=== PATIENT | male | born 1965 | race Caucasian/White ===

== ENCOUNTER 2020-04-20 18:17 | Emergency (ER) | payer BC ==
[2020-04-20] MEDS ORDERED: MORPHINE SULFATE INJ 10 MG/ML VIAL IV ONE (18:32)
[2020-04-20] MEDS ORDERED: ONDANSETRON INJ 4 MG/2 ML VIAL IV ONE (18:32)
[2020-04-20] MEDS ORDERED: SODIUM CHLORIDE 0.9% 1000ML 1,000 ML ONE (19:08)
--- NOTE | 2020-04-20 19:13 | ED.PDOC ---
History of Present Illness - General Chief Complaint: Abdominal Pain Stated Complaint: abdominal pain Time Seen by Provider: 04/20/20 18:19 - History of Present Illness Initial Comments: 54 yo male presents abdomen pain started at noon, had some yesterday but went away. pain abrupt, left lower abdomen. associated with n/v. denies dysuria or heamturia. no fever. no black or bloody bm. no prior abdominal surgeries. no recent travel, no new medications. Review of Systems - Review of Systems Constitutional: Denies: chills, fever EENTM: Denies: blurred vision, throat pain, mouth pain Respiratory: Denies: cough, short of breath Cardiology: Denies: chest pain, palpitations Gastrointestinal/Abdominal: States: abdominal pain, nausea, vomiting. Denies: diarrhea Genitourinary: Denies: dysuria, frequency, hematuria Musculoskeletal: Denies: back pain, muscle pain Skin: Denies: change in color, rash Neurological: Denies: headache, numbness, paresthesia, tingling, tremors, weakness Endocrine: Denies: unexplained weight gain, unexplained weight loss Hematologic/Lymphatic: Denies: blood clots, easy bleeding, easy bruising Past Medical History (General) - Patient Medical History Hx Seizures: No Hx Stroke: No Hx Dementia: No Hx Asthma: No Hx of COPD: No Hx Cardiac Disorders: No Hx Congestive Heart Failure: No Hx Pacemaker: No Hx Hypertension: Yes - Vaccination History Hx Influenza Vaccination: No - Social History Hx Tobacco Use: Yes Family Medical History - Family History Mother Family History: No Known Living Status: Still Living Physical Exam - Physical Exam General Appearance: Alert, No apparent distress, Well Developed, Well Groomed, Well Hydrated, Well Nourished Eyes, Ears, Nose, Throat Exam: PERRL/EOMI, normal ENT inspection, TMs normal Neck: non-tender, full range of motion, supple, normal inspection Respiratory: chest non-tender, lungs clear, normal breath sounds, no respiratory distress, no accessory muscle use Cardiovascular/Chest: normal peripheral pulses, regular rate, rhythm, no edema, no gallop, no JVD, no murmur Peripheral Pulses: 2+ Gastrointestinal/Abdominal: normal bowel sounds, soft, no organomegaly, no pulsatile mass, other - mild llq tenderness, no rebound or gaurding Rectal Exam: deferred Back Exam: normal inspection, no CVA tenderness, no vertebral tenderness Extremity: normal range of motion, non-tender, normal inspection, no pedal edema, no calf tenderness Neurologic: rn telemetry II-XII nml as tested, no motor/sensory deficits, alert, normal mood/affect, oriented x 3 Skin Exam: normal color, warm/dry Progress - Progress Progress: Partial ddx: diverticulitis, kidney/ureter stone, gastroenteritis, sbo, AAA. patient given 4 mg morphine for pain. NS bolus. zofran. EKG shows HR 69 nsr, normal ecg. Will get blood work and ct scan. CT scan: 1. Mild left hydronephrosis with a 2.0 mm stone in the mid left ureter. 2. Punctate left nephrolithiasis. 3. Colonic diverticulosis. 4. Fatty liver. 5. Enlarged prostate gland. Right hydrocele. 6. renal cyst 04/20/20 19:30 EKG STAT 04/20/20 19:48 BLOOD CULTURE Stat 04/20/20 21:06 Discharge Stat Laboratory Results WBC 10.5 K/mm3 (4.8-10.8) 04/20/20 18:35 RBC 5.34 M/mm3 (4.70-6.10) 04/20/20 18:35 Hgb 16.8 gm/dL (14.0-18.0) 04/20/20 18:35 Hct 47.6 % (42.0-52.0) 04/20/20 18:35 MCV 89.2 fl (80.0-94.0) 04/20/20 18:35 MCH 31.4 pg (27.0-31.0) H 04/20/20 18:35 MCHC 35.2 g/dL (33.0-37.0) 04/20/20 18:35 RDW 13.3 % (11.5-14.5) 04/20/20 18:35 Plt Count 255 K/mm3 (130-400) 04/20/20 18:35 MPV 9.3 fl (7.40-10.4) 04/20/20 18:35 Absolute Neuts (auto) 5.50 K/uL (1.8-6.8) 04/20/20 18:35 Absolute Lymphs (auto) 3.50 K/uL (1.0-3.4) H 04/20/20 18:35 Absolute Monos (auto) 1.20 K/uL (0.2-0.8) H 04/20/20 18:35 Absolute Eos (auto) 0.10 K/uL (0.0-0.4) 04/20/20 18:35 Absolute Basos (auto) 0.10 K/uL (0.0-0.1) 04/20/20 18:35 Neutrophils % 53.0 % (42.0-78.0) 04/20/20 18:35 Lymphocytes % 33.6 % (20.0-50.0) 04/20/20 18:35 Monocytes % 11.0 % (2.0-9.0) H 04/20/20 18:35 Eosinophils % 1.4 % (1.0-5.0) 04/20/20 18:35 Basophils % 1.0 % (0.0-2.0) 04/20/20 18:35 Sodium 139 mmol/L (135-145) 04/20/20 18:35 Potassium 3.6 mmol/L (3.6-5.0) 04/20/20 18:35 Chloride 100 mmol/L (101-111) L 04/20/20 18:35 Carbon Dioxide 27 mmol/L (21-31) 04/20/20 18:35 Anion Gap 15.6 (12-18) 04/20/20 18:35 BUN 14 mg/dL (7-18) 04/20/20 18:35 Creatinine 0.96 mg/dL (0.6-1.3) 04/20/20 18:35 BUN/Creatinine Ratio 14.6 (10-20) 04/20/20 18:35 Random Glucose 108 mg/dL (70-105) H 04/20/20 18:35 Serum Osmolality 278.5 mOsm/L (275-295) 04/20/20 18:35 Calcium 9.1 mg/dL (8.4-10.2) 04/20/20 18:35 Total Bilirubin 0.7 mg/dL (0.2-1.0) 04/20/20 18:35 AST 65 IU/L (10-42) H 04/20/20 18:35 ALT 138 IU/L (10-60) H 04/20/20 18:35 Alkaline Phosphatase 95 IU/L (42-121) 04/20/20 18:35 Serum Total Protein 8.0 gm/dL (6.4-8.2) 04/20/20 18:35 Albumin 4.5 g/dl (3.2-5.5) 04/20/20 18:35 Globulin 3.5 gm/dL (2.3-3.5) 04/20/20 18:35 Albumin/Globulin Ratio 1.3 (1.1-1.9) 04/20/20 18:35 Lipase 34 U/L (22-51) 04/20/20 18:35 Urine Color Yellow (Yellow) 04/20/20 20:30 Urine Appearance Cloudy (Clear) 04/20/20 20:30 Urine pH 5.0 (4.5-7.8) 04/20/20 20:30 Ur Specific [place] 1.010 (1.005-1.030) 04/20/20 20:30 Urine Protein Negative mg/dL 04/20/20 20:30 Urine Glucose (UA) Negative mg/dL (Negative) 04/20/20 20:30 Urine Ketones Negative mg/dL (NEGATIVE) 04/20/20 20:30 Urine Blood Large (Negative) H 04/20/20 20:30 Urine Nitrite Negative 04/20/20 20:30 Urine Bilirubin Negative (NEGATIVE) 04/20/20 20:30 Urine Urobilinogen 0.2 mg/dL (0.2-1.0) 04/20/20 20:30 Ur Leukocyte Esterase Negative (Negative) 04/20/20 20:30 Urine RBC 40-50 /hpf H 04/20/20 20:30 Urine WBC 1-3 /hpf 04/20/20 20:30 Ur Epithelial Cells 0 /hpf 04/20/20 20:30 Urine Bacteria 0 04/20/20 20:30 04/21/20 00:23 The data reviewed when caring for this patient included: nurse notes, prior records, etc. The history and assessments from nurses notes were reviewed and considered, and the patient's home medication list was also reviewed and considered. My assessment and the results of testing completed here in the ED were discussed with the patient/family. All questions were answered, and they express understanding of my assessment and the plan. They have been instructed to return if their symptoms worsen, and have been asked to follow up with their primary care physician to recheck today's presenting complaint. Recommend follow up with urology. Strict return precautions given. I have reviewed medication, benefits, alternatives and side effects. Patient decided to proceed with medication.Mona Guerra DO #[id number] 04/21/20 00:25 Departure - Departure Clinical Impression: Ureterolithiasis Time of Disposition: 19:58 Disposition: Discharge to Home or Self Care Departure Forms: ED Discharge - Pt. Copy, Patient Portal Self Enrollment Instructions: DI for Abdominal Pain-Adult, Kidney Stones in Adults, Kidney Stone Diet Referrals: LIZETH LOONEY [Primary Care Provider] - 1-2 Days Prescriptions: Tamsulosin HCl [Flomax] 0.4 mg PO DAILY #14 cap Ibuprofen 800 mg PO TID PRN #30 tab PRN Reason: Pain Ondansetron HCl [Zofran] 4 mg PO TID PRN #15 tab PRN Reason: Vomiting Home Medications: Ambulatory Orders Acetamin W/Cod #3 Tab [Tylenol #3 Tab] 1 ea PO Q4-6H PRN #20 tab 07/31/14 Azithromycin [Zithromax Z-Saji] 1 ea PO DAILY 07/31/14 Naproxen Sodium [Anaprox Ds] 550 mg PO BID #30 tab 07/31/14 Oseltamivir Capsule [Tamiflu] 75 mg PO BID 07/31/14 Ibuprofen 800 mg PO TID PRN #30 tab 04/20/20 Ondansetron HCl [Zofran] 4 mg PO TID PRN #15 tab 04/20/20 Tamsulosin HCl [Flomax] 0.4 mg PO DAILY #14 cap 04/20/20
--- NOTE | 2020-04-20 19:37 | CT ---
EXAM: CT Abdomen and Pelvis With Intravenous Contrast CLINICAL HISTORY: The patient is 54 years old and is Male; abdominal pain, llq TECHNIQUE: Axial computed tomography images of the abdomen and pelvis with intravenous contrast. Sagittal and coronal reformatted images were created and reviewed. This CT exam was performed using one or more of the following dose reduction techniques: automated exposure control, adjustment of the mA and/or kV according to patient size, and/or use of iterative reconstruction technique. COMPARISON: No relevant prior studies available. FINDINGS: Lung bases: Dependent changes in the lungs. ABDOMEN: Liver: Fatty liver. Gallbladder and bile ducts: Unremarkable. No calcified stones. No ductal dilation. Pancreas: No findings to suggest acute pancreatitis. No mass visualized. No ductal dilation. Spleen: Unremarkable. No splenomegaly. Adrenals: Unremarkable. No mass. Kidneys and ureters: Mild left hydronephrosis with a 2.0 mm stone in the mid left ureter. Punctate left nephrolithiasis. Left renal simple cyst, 4.9 cm. No follow-up imaging recommended. Right kidney is unremarkable. Stomach and bowel: Colonic diverticulosis. No bowel dilatation or obstruction. No bowel wall thickening. Stomach is unremarkable. PELVIS: Appendix: The visualized appendix is normal. No pericecal inflammation to suggest acute appendicitis. Bladder: Unremarkable. No mass. Reproductive: Enlarged prostate gland. Right hydrocele. ABDOMEN and PELVIS: Intraperitoneal space: Unremarkable. No free air. No significant fluid collection. Bones/joints: Degenerative changes in the hips. Partial ankylosis of the right SI joint. Degenerative changes in the visualized spine. No acute fracture identified. Mild scoliosis. No dislocation. Soft tissues: Unremarkable. Vasculature: Unremarkable. No abdominal aortic aneurysm. Lymph nodes: No pathologically enlarged lymph nodes. IMPRESSION: 1. Mild left hydronephrosis with a 2.0 mm stone in the mid left ureter. 2. Punctate left nephrolithiasis. 3. Colonic diverticulosis. 4. Fatty liver. 5. Enlarged prostate gland. Right hydrocele. 6. Additional non-emergent findings as above. Electronically signed by: Grace Mccloud MD 04/20/2020 7:36 PM CDT
[2020-04-20] MEDS ORDERED: HYDROmorphone HCL INJ 2 MG/ML VIAL IV ONE (19:46)
[2020-04-20] MEDS ORDERED: SODIUM CHLORIDE 0.9% 1000ML 1,000 ML IVS ONE (19:46)
[2020-04-20] MEDS ORDERED: HYDROmorphone HCL INJ 2 MG/ML VIAL ONE (19:48)
[2020-04-20] MEDS ORDERED: KETOROLAC TROMETHAMINE INJ 30 MG/ML VIAL IV ONE (20:06)
[2020-04-20] MEDS ORDERED: HYDROCOD/APAP 5/325 (ER DISP) #3 TAB PO ONE (21:05)
[2020-04-20 21:41] VITALS: O2SAT 95
[2020-04-20 21:44] VITALS: BP 139/88; TEMP 98.3
== END 2020-04-20 21:40 | disposition home or self-care (01) ==
LOC: ER 18:17
DX: N13.2 Hydronephrosis with renal and ureteral calculous obstruction (principal); K57.30 Diverticulosis of large intestine without perforation or abscess without bleeding; K76.0 Fatty (change of) liver, not elsewhere classified; N40.0 Benign prostatic hyperplasia without lower urinary tract symptoms; N43.3 Hydrocele, unspecified; N28.1 Cyst of kidney, acquired; I10 Essential (primary) hypertension; Z87.891 Personal history of nicotine dependence
CPT/HCPCS: 36415; 74177; 80053; 81001; 83690; 85025; 87040; 93005; J1170; J2270; J2405; J7030

== ENCOUNTER 2020-08-28 11:57 | Emergency (ER) | payer BC ==
--- NOTE | 2020-08-28 12:20 | ED.PDOC ---
History of Present Illness - General Chief Complaint: General Time Seen by Provider: 08/28/20 12:00 Source: patient, RN notes reviewed, Vital Signs reviewed Exam Limitations: no limitations - History of Present Illness Comments: mark 54 yo M with history of high cholesterol comes in with 4 days of body aches, dry cough, fever, tmax 103. States his symptoms are improving. Was seen at clinic and was found to have oxygen levels of 89% so was sent to ER. No hx of blood clots. Was test for covid at clinic, results pending. Current oxygen 95% on RA. Timing/Duration: week, other - improving. Cough Quality/Degree: dry cough Allergies/Adverse Reactions: Allergies NO KNOWN ALLERGY Allergy (Unverified 07/31/14 13:52) Home Medications: Ambulatory Orders Lipitor PO DAILY 08/28/20 Review of Systems - Review of Systems Constitutional: States: fever, malaise. Denies: chills, weakness EENTM: Denies: ear pain, throat pain Respiratory: States: cough. Denies: short of breath, wheezing Cardiology: Denies: chest pain, palpitations Gastrointestinal/Abdominal: Denies: abdominal pain, nausea, vomiting Musculoskeletal: States: muscle pain - body aches Neurological: Denies: headache, weakness Hematologic/Lymphatic: Denies: blood clots, easy bleeding, easy bruising Past Medical History (General) - Patient Medical History Hx Seizures: No Hx Stroke: No Hx Dementia: No Hx Asthma: No Hx of COPD: No Hx Cardiac Disorders: No Hx Congestive Heart Failure: No Hx Pacemaker: No Hx Hypertension: Yes Hx Gastroesophageal Reflux: Yes - Vaccination History Hx Influenza Vaccination: No - Social History Hx Tobacco Use: Yes Family Medical History - Family History Mother Family History: No Known Living Status: Still Living Physical Exam - Physical Exam General Appearance: Alert, Comfortable, No apparent distress, Well Developed, Well Groomed, Well Hydrated, Well Nourished Eye Exam: bilateral normal ENT Exam: normal ENT inspection, hearing grossly normal, TMs normal Neck: non-tender, full range of motion, supple, normal inspection Respiratory: chest non-tender, lungs clear, normal breath sounds, no respiratory distress, no accessory muscle use Cardiovascular/Chest: normal peripheral pulses, regular rate, rhythm, no edema, no gallop, no JVD, no murmur Gastrointestinal/Abdominal: normal bowel sounds, non tender, soft, no organomegaly, no pulsatile mass Extremity: normal range of motion, non-tender, normal inspection, no pedal edema, no calf tenderness, normal capillary refill Neurologic: no motor/sensory deficits, alert, normal mood/affect, oriented x 3 Skin Exam: normal color, warm/dry Progress - Progress Progress: 08/28/20 12:59 partial ddx considered: covid, pneumonia, influenza, allergies, PND, PE, others considered The data reviewed when caring for this patient included: nurse notes, prior records, etc. The history and assessments from nurses notes were reviewed and considered, and the patient's home medication list was also reviewed and considered. My assessment and the results of testing completed here in the ED were discussed with the patient. All questions were answered, and he express understanding of my assessment and the plan. he have been instructed to return if their symptoms worsen, and have been asked to follow up with their primary care physician to recheck today's presenting complaint. Strict return precautions given. Patient discharged home in stable condition. Mona Guerra DO #[id number] - EKG/XRAY/CT XRAY: chest - no acute cardiopulmonary pathology. Departure - Departure Clinical Impression: Viral syndrome, Cough Time of Disposition: 12:55 Disposition: Discharge to Home or Self Care Departure Forms: ED Discharge - Pt. Copy, Patient Portal Self Enrollment Instructions: Viral Syndrome (DC), Coronavirus Disease 2019 (COVID-19) Overview, Preventing the Spread of an Infectious Disease Diet: resume usual diet Activity: increase activity as tolerated Referrals: LIZETH LOONEY [Primary Care Provider] - 1-5 Days Home Medications: Ambulatory Orders Lipitor PO DAILY 08/28/20 Additional Instructions: You can buy a pulse oximeter to help monitor your oxygen levels at home. If your symptoms get worse at any point please return to the emergency department. Continue with good hydration and rest.
[2020-08-28 12:29] VITALS: O2SAT 94
[2020-08-28] MEDS ORDERED: DEXAMETHASONE 4 MG TAB PO ONE (12:52)
--- NOTE | 2020-08-28 12:52 | RAD ---
EXAM DESCRIPTION: Chest,1 View CLINICAL HISTORY: cough COMPARISON: None available FINDINGS: The cardiomediastinal silhouette is unremarkable. There is no airspace consolidation or pleural effusion. The bronchovascular markings are within normal limits, and the lungs are not hyperinflated. There is no pneumothorax or acute fracture. IMPRESSION: Negative exam. Electronically signed by: Pedro Luis Albright MD 08/28/2020 12:51 PM [facility]
[2020-08-28 13:13] VITALS: BP 119/82; TEMP 97.8
== END 2020-08-28 13:04 | disposition home or self-care (01) ==
LOC: ER 11:57
DX: B34.9 Viral infection, unspecified (principal); I10 Essential (primary) hypertension; K21.9 Gastro-esophageal reflux disease without esophagitis; Z79.899 Other long term (current) drug therapy
CPT/HCPCS: 71045; J8540